=== PATIENT | male | born 1990 | race Caucasian/White ===

== ENCOUNTER 2019-03-26 21:38 | Emergency (ER) | payer SELFPAY ==
[~2019-03-26] VITALS: Ht 165.1 cm; Wt 72.1 kg
[2019-03-26 21:42] VITALS: Ht 165.1 cm; Wt 72.1 kg
[2019-03-27 02:40] VITALS: BP 110/68
== END 2019-03-27 02:40 | disposition home or self-care (01) ==
LOC: ED 21:38
DX: R07.89 Other chest pain (principal)
CPT/HCPCS: Q0092

== ENCOUNTER 2019-04-04 02:36 | Emergency (ER) | payer SELFPAY ==
[~2019-04-04] VITALS: Ht 165.1 cm; Wt 73.5 kg
[2019-04-04 02:41] VITALS: Ht 165.1 cm; Wt 73.5 kg
[2019-04-04 05:35] LABS: BASOPHIL % 0.3 % (0-2); PLATELET COUNT 216 x10^3mcL (130-400); RED CELL DISTRIBUTION WIDTH 12.9 % (11.5-14.5)
[2019-04-04 05:41] LABS: CARBON DIOXIDE 27.9 mmol/L (21-32); CHLORIDE SERUM 102 mmol/L (98-107); CREATININE SERUM 1.1 mg/dL (0.7-1.3); GFR1 > 60 mL/min; GLUCOSE SERUM 104 mg/dL (74-106); MAGNESIUM 1.9 mg/dL (1.8-2.4); POTASSIUM SERUM 4.1 mmol/L (3.5-5.1); SODIUM SERUM 139 mmol/L (136-145)
[2019-04-04 06:31] VITALS: BP 122/76
== END 2019-04-04 06:31 | disposition home or self-care (01) ==
LOC: ED 02:36
PROVIDERS: Emergency Medicine
DX: R00.2 Palpitations (principal); F41.9 Anxiety disorder, unspecified
CPT/HCPCS: 36415